=== PATIENT | female | born 1985 | race Caucasian/White ===

== ENCOUNTER 2024-05-27 12:46 | Outpatient (CLI) | payer OTHER, SELFPAY ==
[2024-05-27 13:35] LABS: Appearance Urine Cloudy (Clear); Bilirubin Urine Negative (Negative); Blood Urine Negative (Negative); Color Urine Orange (Yellow); Glucose Urine Trace (Negative); Ketones Urine Negative (Negative); Protein Urine Trace (Negative)
[2024-05-27 13:36] LABS: Bacteria Urine Few; Leukocyte Esterase Urine Trace (Negative); Nitrite Urine Positive (Negative); Squamous Epithelial Cell Urine Few (None-Few)
== END 2024-05-27 12:47 | disposition home or self-care (01) ==
LOC: NPINS 12:50
PROVIDERS: Visit Provider Obstetrics & Gynecology
DX: N39.0 Urinary tract infection, site not specified (principal)
CPT/HCPCS: 81001; 87086; 87186